=== PATIENT | male | born 1970 | race Caucasian/White ===

== ENCOUNTER 2024-09-08 09:25 | Inpatient (IN) | payer MEDICAID ==
[~2024-09-08] VITALS: Ht 172.7 cm; Wt 65.3 kg
--- NOTE | 2024-09-08 10:44 | ED.PDOC ---
History of Present Illness HPI Comments 54-year-old male came to the ER stating that he has a right hand swelling which started four days ago increasing in size. And swelling started after he had an object fall on his right hand. He denies use of drugs. He denies use of any medication. No fever on arrival. Vitals stable. Chief Complaint: Upper Extremity Time Seen by MD: 09:38 Primary Care Provider: none Reviewed Notes: Nurses Notes, Medications, Allergies Allergies: Coded Allergies: NO KNOWN ALLERGIES (Unverified , 09/08/24) Information Source: Patient Mode of Arrival: Ambulatory Severity: Moderate Timing: Days Duration: Since onset Past Medical History PAST MEDICAL HISTORY: Denies Surgical History: Denies all surgeries Social History Smoker: Non-Smoker Alcohol: Denies ETOH Use Drugs: Denies Drug Use Constitutional: denies: chills, diaphoresis, fatigue, fever, malaise, sweats, weakness, others EENTM: denies: blurred vision, double vision, ear bleeding, ear discharge, ear drainage, ear pain, ear ringing, eye pain, eye redness, hearing loss, mouth pain, mouth swelling, nasal discharge, nose bleeding, nose congestion, nose pain, photophobia, tearing, throat pain, throat swelling, voice changes, others Respiratory: denies: cough, hemoptysis, orthopnea, SOB at rest, shortness of breath, SOB with excertion, stridor, wheezing, others Cardiovascular: denies: chest pain, dizzy spells, diaphoresis, Dyspnea on exertion, edema, irregular heart beat, left arm pain, lightheadedness, palpitations, PND, syncope, others Gastrointestinal: denies: abdomen distended, abdominal pain, blood streaked bowels, constipated, diarrhea, dysphagia, difficulty swallowing, hematemesis, melena, nausea, poor appetite, poor fluid intake, rectal bleeding, rectal pain, vomiting, others Genitourinary: denies: burning, dysuria, flank pain, frequency, hematuria, incontinence, penile discharge, penile sore, pain, testicle pain, testicle swelling, urgency, others Neurological: denies: dizziness, fainting, headache, left sided numbness, left sided weakness, numbness, paresthesia, pre-existing deficit, right sided numbness, right sided weakness, seizure, speech problems, tingling, tremors, weakness, others Musculoskeletal: reports: joint swelling (Right hand); denies: back pain, gout, joint pain, muscle pain, muscle stiffness, neck pain, others Integumetry: denies: bruises, change in color, change in hair/nails, dryness, laceration, lesions, lumps, rash, wounds, others Allergic/Immunocompromised: denies: Difficulty Healing, Frequent Infections, Hives, Itching, others Hematologic/Lymphatic: denies: anemia, blood clots, easy bleeding, easy bruising, swollen glands, others Endocrine: denies: excessive hunger, excessive sweating, excessive thirst, excessive urination, flushing, intolerance to cold, intolerance to heat, unexplained weight gain, unexplained weight loss, others Psychiatric: denies: anxiety, bipolar disorder, depression, hopeless, panic disorder, schizophrenia, sleepless, suicidal, others Physical Exam General Appearance: Moderate Distress HEENT: Normal ENT Inspection, Pharynx Normal, TMs Normal Neck: Full Range of Motion, Non-Tender, Normal, Normal Inspection Respiratory: Chest Non-Tender, Lungs Clear, No Accessory Muscle Use, No Respiratory Distress, Normal Breath Sounds Cardiovascular: No Edema, No JVD, No Murmur, No Gallop, Normal Peripheral Pulses, Regular Rate/Rhythm Breast Exam: Deferred Gastrointestinal: No Organomegaly, Non Tender, No Pulsatile Mass, Normal Bowel Sounds, Soft Genitalia: Deferred Pelvic: Deferred Rectal: Deferred Extremities: Swelling (Right hand) Musculoskeletal : Apperance: Normal Neurologic: Alert, straightening press operator II-XII nml as Tested, No Motor Deficits, Normal Affect, Normal Mood, No Sensory Deficits Cerebellar Function: Normal Reflexes: Normal Skin: Dry, Normal Color, Warm Peripheral Pulses: 3+ Radial (R), 3+ Radial (L) Lymphatic: No Adenopathy Was a procedure done? Was a procedure done?: No Differential Dx Considerations may include: Cellulitis Electrolyte imbalance X-Ray, Labs, Meds, VS Vital Signs Date Time Temp Pulse Resp B/P (MAP) Pulse Ox O2 Delivery O2 Flow Rate FiO2 09/08/24 09:33 98.7 95 17 109/79 (89) 99 98.7 Patient alert. Complaining of right hand swelling. On examination he does have pulses but infected right hand. Vitals stable. Answering all questions. Establish intravenous access. Was given fluids. Was given Rocephin. Was given clindamycin. Reviewed his history. Denies use of drugs. Explained to the patient. Continue cardiac monitoring. Time of 1ST Reevaluation: 10:42 Reevaluation 1ST: Unchanged Patient Education/Counseling: Diagnosis, Treatment, Prognosis Family Education/Counseling: No Family Present Departure 1 Departure Time of Disposition: 10:43 Impression: Primary Impression: Cellulitis Qualified Codes: L03.113 - Cellulitis of right upper limb Disposition: ADMITTED INPATIENT Admit to: Med Surg Condition: Guarded Critical Care Note Critical Care Time?: No Stability Stability form required: No Heart Score Heart Score: Heart Score Response (Comments) Value History N/A 0 EKG N/A 0 Age N/A 0 Risk Factors N/A 0 Troponin N/A 0 Total 0 YUNIER URIARTE MD Sep 08, 2024 10:44
--- NOTE | 2024-09-08 11:27 | DVH ---
CLINICAL INDICATION: trauma TECHNIQUE: 3 radiographic views of the right hand were obtained. Comparison: None FINDINGS/IMPRESSION: There is no evidence of acute fracture or dislocation. The visualized joint space is well maintained. The alignment is anatomical. There is no radiopaque foreign body.
[2024-09-08 11:42] VITALS: PULSE 106; RESP 16; O2SAT 98
[2024-09-08] MEDS: SODIUM CHLORIDE 0.9% 1,000 ML IV ONE ×2 (11:45→14:09)
[2024-09-08] MEDS: ONDANSETRON HCL 4 MG/2 ML VIAL IV ONE (11:49)
[2024-09-08] MEDS: MORPHINE SULFATE 4 MG/ML SYR/VIAL IV ONE (11:49)
[2024-09-08] MEDS: cefTRIAXone 1GM/50ML D5W 50 ML IV ONE (11:49)
[2024-09-08 12:21] LABS: Basophils # (auto) 0.1 10 ^3/uL (0-0.2); Basophils % (auto) 0.3 % (0.0-2.0); Eosinophils # (auto) 0 10 ^3/uL (0-0.8); Hematocrit 45.3 % (41.0-53.0); Hemoglobin 15.1 g/dL (13.5-17.5); Lymphocytes # (auto) 1.5 10 ^3/uL (0.4-5.4); Lymphocytes % (auto) 7.4 % (10.0-50.0); Mean Corpuscular Hemoglobin 30.2 pg (28.0-32.0); Mean Corpuscular Hgb Conc. 33.3 g/dL (32.0-36.0); Mean Corpuscular Volume 90.7 fL (80.0-100.0); Monocytes # (auto) 1.5 10 ^3/uL (0-1.3); Monocytes % (auto) 7.6 % (0.0-12.0); Neutrophils # (auto) 16.7 10 ^3/uL (1.6-8.6); Neutrophils % (auto) 84.7 % (37.0-80.0); Platelet Count (auto) 314 10^3/uL (140-450); Red Blood Cells 4.99 10^6/uL (4.5-5.90); Red Cell Distribution Width 13.2 % (11.8-14.3); White Blood Cell 19.7 10^3/uL (4.4-10.8)
[2024-09-08 12:28] LABS: Chloride 99 mmol/L (98-107); Potassium 3.8 mmol/L (3.5-5.1)
[2024-09-08 12:29] LABS: Anion Gap 11 (5-15); Calcium 9.7 mg/dL (8.7-10.4); Carbon Dioxide 25 mmol/L (20-31)
[2024-09-08 12:34] LABS: Blood Urea Nitrogen 12 mg/dL (9-23)
[2024-09-08 12:35] LABS: Glucose 111 mg/dL (74-106); Sodium 135 mmol/L (136-145)
[2024-09-08] MEDS: CLINDAMYCIN 600MG IV 50 ML IV ONE (12:40)
[2024-09-08] MEDS ORDERED: DOCUSATE SOD 100 MG CAP PO PRN (13:45)
[2024-09-08] MEDS ORDERED: ONDANSETRON HCL 4 MG/2 ML VIAL IV PRN (13:45)
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
[2024-09-08] MEDS: CLINDAMYCIN 600MG IV 50 ML IV SCH (14:00)
[2024-09-08 16:47] VITALS: BP 135/87; PULSE 87; RESP 20; TEMP 99.1; O2SAT 99
[2024-09-08] MEDS: HYDROcodone-ACET 5/325MG TAB PO PRN (17:11)
[2024-09-09 07:28] LABS: Basophils # (auto) 0 10 ^3/uL (0-0.2); Basophils % (auto) 0.2 % (0.0-2.0); Eosinophils # (auto) 0.1 10 ^3/uL (0-0.8); Eosinophils % (auto) 0.6 % (0.0-7.0); Hematocrit 41.7 % (41.0-53.0); Hemoglobin 14.3 g/dL (13.5-17.5); Lymphocytes # (auto) 1.6 10 ^3/uL (0.4-5.4); Lymphocytes % (auto) 9.7 % (10.0-50.0); Mean Corpuscular Hemoglobin 30.6 pg (28.0-32.0); Mean Corpuscular Hgb Conc. 34.4 g/dL (32.0-36.0); Mean Corpuscular Volume 88.8 fL (80.0-100.0); Monocytes % (auto) 6.2 % (0.0-12.0); Neutrophils # (auto) 13.4 10 ^3/uL (1.6-8.6); Neutrophils % (auto) 83.3 % (37.0-80.0); Nucleated Red Blood Cells % 0.1 %; Platelet Count (auto) 289 10^3/uL (140-450); Red Blood Cells 4.69 10^6/uL (4.5-5.90); Red Cell Distribution Width 13.2 % (11.8-14.3); White Blood Cell 16.1 10^3/uL (4.4-10.8)
[2024-09-09 08:02] LABS: Anion Gap 9 (5-15); Carbon Dioxide 25 mmol/L (20-31); Chloride 98 mmol/L (98-107); Potassium 4.2 mmol/L (3.5-5.1); Sodium 132 mmol/L (136-145)
[2024-09-09 08:03] LABS: Alanine Aminotransferase 61 U/L (7-40); Albumin 4.2 g/dL (3.2-4.8); Alkaline Phosphatase 163 U/L (46-116); Aspartate Aminotransferase 53 U/L (13-40); Bilirubin, Total 1.1 mg/dL (0.2-1.0); Calcium 9.4 mg/dL (8.7-10.4); Glucose 95 mg/dL (74-106); Total Protein 6.7 g/dL (5.7-8.2)
[2024-09-09 08:49] LABS: BUN/Creatinine Ratio 23.7 (10.0-20.0); Blood Urea Nitrogen 14 mg/dL (9-23)
[2024-09-09 09:00] VITALS: BP 168/55; PULSE 77; RESP 16; TEMP 98.2; O2SAT 97
[2024-09-09] MEDS: cefTRIAXone 1GM/50ML D5W 50 ML IV SCH (09:26)
[2024-09-09 13:00] VITALS: BP 104/61; PULSE 83; RESP 14; TEMP 98.5; O2SAT 92
--- NOTE | 2024-09-09 16:25 | DVHPN2 ---
Subjective Patient continues to report having right hand pain with throbbing Reviewed: Care Plan, H&P, Labs, Medications Changes from previous H/P or p: No Changes General: Per HPI Eyes: No Pain, No Vision change, No Conjunctivae inflammation, No Eyelid inflammation, No Other, No Redness ENT: No Ear pain, No Ear discharge, No Nose pain, No Nose discharge, No Nose congestion, No Mouth pain, No Mouth swelling, No Throat pain, No Throat swelling, No Other Cardiovascular: No Chest Pain, No Palpitations, No Orthopnea, No Paroxysmal Noc. Dyspnea, No Edema, No Lt Headedness, No Other Respiratory: No Cough, No Dry, No Shortness of breath, No SOB with excertion, No Wheezing, No Hemoptysis, No Pleuritic Pain, No Sputum, No Other Gastrointestinal: No Nausea, No Vomiting, No Abdominal Pain, No Diarrhea, No Constipation, No Melena, No Hematochezia, No Other Genitourinary: No Dysuria, No Frequency, No Incontinence, No Hematuria, No Retention, No Other Musculoskeletal: No other, No neck pain, No shoulder pain, No arm pain, No back pain; hand pain (right hand swelling, redness, and pain); No leg pain, No foot pain Skin: No Rash, No Lesions, No Jaundice, No Bruising, No Other Objective Vitals Vital Signs Date Time Temp Pulse Resp B/P (MAP) Pulse Ox O2 Delivery O2 Flow Rate FiO2 09/09/24 13:00 98.5 83 14 104/61 (75) 92 98.5 09/09/24 08:00 Room Air* 0 21 Intake/Output Intake and Output 09/09/24 07:00 Intake Total 250 ml Balance 250 ml Intake IV Total 250 ml General Appearance: Alert, Oriented X3, Cooperative, mild distress HEENT: Atraumatic, PERRLA Lungs: Clear to auscultation, Normal air movement Cardiovascular: Normal S1, Normal S2 Abdomen: Normal bowel sounds, Soft, No tenderness, No hepatospenomegaly Genitourinary: No Apparent Abnormalities Extremities: Normal pulses, Other (Right hand swelling) Neuro: Normal gait, Normal speech Psych/Mental Status: Mental status NL, Mood NL Medications Current Medications Medications Dose Ordered Sig/Raul Route Start Time Stop Time Status Last Admin Dose Admin Acetaminophen/ Hydrocodone Bitart 1 tab Q4HP PRN PO 09/08/24 13:45 09/09/24 02:42 1 TAB Ondansetron HCl 4 mg Q4HP PRN IV 09/08/24 13:45 Docusate Sodium 100 mg BIDPRN PRN PO 09/08/24 13:45 Acetaminophen 650 mg Q6HP PRN PO 09/08/24 13:45 Clindamycin Phosphate 50 ml @ 50 mls/hr Q8HR IV 09/08/24 14:00 09/09/24 15:19 50 MLS/HR Ceftriaxone Sodium 50 ml @ 100 mls/hr DAILY@09 IV 09/09/24 09:00 09/09/24 09:26 100 MLS/HR Laboratory Results Laboratory Tests 09/09/24 06:45 Chemistry Test 09/09/24 06:45 Albumin 4.2 g/dL (3.2-4.8) Calcium Level 9.4 mg/dL (8.7-10.4) Total Protein 6.7 g/dL (5.7-8.2) LFT Test 09/09/24 06:45 Alanine Aminotransferase (ALT) 61 U/L (7-40) H Alkaline Phosphatase 163 U/L (46-116) H Aspartate Amino Transferase (AST) 53 U/L (13-40) H Total Bilirubin 1.1 mg/dL (0.2-1.0) H Microbiology Microbiology Date/Time Source Procedure Growth Status 09/08/24 14:05 Blood Blood Culture - Preliminary NO GROWTH AFTER 24 HOURS OF INCUBATION. Resulted Labs and/or images reviewed: Labs reviewed by me, Image(s) reviewed by me Assessment/Plan Assessment/Plan Impression: -sepsis -right hand cellulitis Plan: -continue antibiotic therapy with Rocephin and clindamycin -add Florastor -blood and wound cultures -pain management -repeat labs in a.m. Total time spent with patient discussing and formulating plan of care: 35 minutes. This medical document was created using an electronic medical record system with [employer] dictation system. Although this document has been carefully reviewed, there may still be some phonetic and typographical errors. These areas are purely typographical due to imperfections of the software programs, and do not reflect any compromise in the patient's medical care. Plan discussed with: Patient, Other (RN) My Orders Orders - EVONNE VARGAS [employer]ISOR OPERATOR Procedure Category Date Status Time Cleanse Wound With ILEANA 09/09/24 In Process Wound Clean 10:47 * Dietary Consult CONS 09/09/24 Transmitted 11:24 Florastor (S. PHA 09/10/24 Verified Boulardii) (Florastor) 10:00 Basic Metabolic Panel LAB 09/10/24 Verified 04:00 Complete Blood Count LAB 09/10/24 Verified 04:00 Date of Service: Sep 09, 2024 Billing Provider: EVONNE VARGAS NP Common Visit Codes: [id number] INP/OBS CARE(HIGH) EVONNE VARGAS NP Sep 09, 2024 16:25
[2024-09-09 17:00] VITALS: BP 112/70; PULSE 70; RESP 18; TEMP 98.2; O2SAT 97
[2024-09-09 21:00] VITALS: BP 115/58; PULSE 84; RESP 19; TEMP 98.8; O2SAT 97
[2024-09-09] MEDS: ACETAMINOPHEN 325 MG TAB PO PRN (23:14)
[2024-09-10 05:00] VITALS: BP 97/58; PULSE 57; RESP 20; TEMP 98.1; O2SAT 98
[2024-09-10 06:30] LABS: Chloride 102 mmol/L (98-107); Potassium 3.6 mmol/L (3.5-5.1); Sodium 136 mmol/L (136-145)
[2024-09-10 06:31] LABS: Anion Gap 6 (5-15); Basophils # (auto) 0 10 ^3/uL (0-0.2); Basophils % (auto) 0.4 % (0.0-2.0); Calcium 9.2 mg/dL (8.7-10.4); Carbon Dioxide 28 mmol/L (20-31); Eosinophils # (auto) 0.2 10 ^3/uL (0-0.8); Eosinophils % (auto) 1.4 % (0.0-7.0); Hematocrit 40.5 % (41.0-53.0); Lymphocytes # (auto) 1.6 10 ^3/uL (0.4-5.4); Mean Corpuscular Hemoglobin 30.6 pg (28.0-32.0); Mean Corpuscular Hgb Conc. 34.7 g/dL (32.0-36.0); Mean Corpuscular Volume 88.4 fL (80.0-100.0); Monocytes # (auto) 0.8 10 ^3/uL (0-1.3); Neutrophils # (auto) 9.5 10 ^3/uL (1.6-8.6); Neutrophils % (auto) 78.2 % (37.0-80.0); Platelet Count (auto) 311 10^3/uL (140-450); Red Blood Cells 4.58 10^6/uL (4.5-5.90); Red Cell Distribution Width 13.2 % (11.8-14.3); White Blood Cell 12.1 10^3/uL (4.4-10.8)
[2024-09-10 06:36] LABS: BUN/Creatinine Ratio 21.2 (10.0-20.0); Blood Urea Nitrogen 11 mg/dL (9-23); Glucose 99 mg/dL (74-106)
[2024-09-10 08:00] VITALS: PULSE 75; RESP 16; O2SAT 100
[2024-09-10] MEDS: FLORASTOR (S. BOULARDII) 250 MG CAP PO SCH (08:50)
[2024-09-10 09:00] VITALS: BP 102/56; PULSE 75; RESP 16; TEMP 97.7; O2SAT 100
--- NOTE | 2024-09-10 10:56 | DVHPN2 ---
Subjective Patient reports improvement with right hand Reviewed: Care Plan, H&P, Labs, Medications Changes from previous H/P or p: No Changes General: Per HPI Eyes: No Pain, No Vision change, No Conjunctivae inflammation, No Eyelid inflammation, No Other, No Redness ENT: No Ear pain, No Ear discharge, No Nose pain, No Nose discharge, No Nose congestion, No Mouth pain, No Mouth swelling, No Throat pain, No Throat swelling, No Other Cardiovascular: No Chest Pain, No Palpitations, No Orthopnea, No Paroxysmal Noc. Dyspnea, No Edema, No Lt Headedness, No Other Respiratory: No Cough, No Dry, No Shortness of breath, No SOB with excertion, No Wheezing, No Hemoptysis, No Pleuritic Pain, No Sputum, No Other Gastrointestinal: No Nausea, No Vomiting, No Abdominal Pain, No Diarrhea, No Constipation, No Melena, No Hematochezia, No Other Genitourinary: No Dysuria, No Frequency, No Incontinence, No Hematuria, No Retention, No Other Musculoskeletal: No other, No neck pain, No shoulder pain, No arm pain, No back pain; hand pain (right hand swelling, redness, and pain); No leg pain, No foot pain Skin: No Rash, No Lesions, No Jaundice, No Bruising, No Other Objective Vitals Vital Signs Date Time Temp Pulse Resp B/P (MAP) Pulse Ox O2 Delivery O2 Flow Rate FiO2 09/10/24 09:00 97.7 75 16 102/56 (71) 100 97.7 09/10/24 08:00 Room Air* 0 21 Intake/Output Intake and Output 09/10/24 07:00 Intake Total 708 ml Output Total 900 ml Balance -192 ml Intake Oral 558 ml IV Total 150 ml Output Urine Total 900 ml General Appearance: Alert, Oriented X3, Cooperative, mild distress HEENT: Atraumatic, PERRLA Lungs: Clear to auscultation, Normal air movement Cardiovascular: Normal S1, Normal S2 Abdomen: Normal bowel sounds, Soft, No tenderness, No hepatospenomegaly Genitourinary: No Apparent Abnormalities Extremities: Normal pulses, Other (Right hand swelling) Neuro: Normal gait, Normal speech Skin: Dry, Intact Psych/Mental Status: Mental status NL, Mood NL Medications Current Medications Medications Dose Ordered Sig/Raul Route Start Time Stop Time Status Last Admin Dose Admin Acetaminophen/ Hydrocodone Bitart 1 tab Q4HP PRN PO 09/08/24 13:45 09/09/24 02:42 1 TAB Ondansetron HCl 4 mg Q4HP PRN IV 09/08/24 13:45 Docusate Sodium 100 mg BIDPRN PRN PO 09/08/24 13:45 Acetaminophen 650 mg Q6HP PRN PO 09/08/24 13:45 09/09/24 23:14 650 MG Clindamycin Phosphate 50 ml @ 50 mls/hr Q8HR IV 09/08/24 14:00 09/10/24 05:35 50 MLS/HR Ceftriaxone Sodium 50 ml @ 100 mls/hr DAILY@09 IV 09/09/24 09:00 09/10/24 08:49 100 MLS/HR Saccharomyces Boulardii 250 mg DAILY PO 09/10/24 10:00 09/10/24 08:50 250 MG Laboratory Results Laboratory Tests 09/10/24 05:52 Chemistry Test 09/10/24 05:52 Calcium Level 9.2 mg/dL (8.7-10.4) Microbiology Microbiology Date/Time Source Procedure Growth Status 09/08/24 14:05 Blood Blood Culture - Preliminary NO GROWTH AFTER 24 HOURS OF INCUBATION. Resulted Labs and/or images reviewed: Labs reviewed by me, Image(s) reviewed by me Assessment/Plan Assessment/Plan Impression: -sepsis -right hand cellulitis Plan: Events: No events overnight right hand swelling has improved dramatically. Continues to have some drainage noted on wound. White blood cell count also improving -continue antibiotic therapy with Rocephin and clindamycin , continue Florastor -blood and wound cultures : Pending -pain management -repeat labs in a.m. Total time spent with patient discussing and formulating plan of care: 35 minutes. This medical document was created using an electronic medical record system with [employer] dictation system. Although this document has been carefully reviewed, there may still be some phonetic and typographical errors. These areas are purely typographical due to imperfections of the software programs, and do not reflect any compromise in the patient's medical care. Plan discussed with: Patient, Other (RN) My Orders Orders - EVONNE VARGAS NP Procedure Category Date Status Time Cleanse Wound With ILEANA 09/09/24 In Process Wound Clean 10:47 * Dietary Consult CONS 09/09/24 Transmitted 11:24 Florastor (S. PHA 09/10/24 In Process Boulardii) (Florastor) 10:00 Basic Metabolic Panel LAB 09/11/24 Verified 04:00 Complete Blood Count LAB 09/11/24 Verified 04:00 Date of Service: Sep 10, 2024 Billing Provider: EVONNE VARGAS NP Common Visit Codes: [id number] INP/OBS CARE(MOD) EVONNE VARGAS NP Sep 10, 2024 10:56
[2024-09-10 13:00] VITALS: BP 115/65; PULSE 66; RESP 20; TEMP 97.7; O2SAT 93
[2024-09-10 17:00] VITALS: BP 111/69; PULSE 62; RESP 18; TEMP 98.1; O2SAT 93
[2024-09-10 21:00] VITALS: BP 100/51; PULSE 86; RESP 18; TEMP 98.5; O2SAT 96
[2024-09-11] VITALS (8 sets, daily range): BP systolic 91–140; BP diastolic 47–69; PULSE 65–83; RESP 16–20; TEMP 97.5–98.4; O2SAT 92–100
[2024-09-11 06:35] LABS: Basophils # (auto) 0.1 10 ^3/uL (0-0.2); Basophils % (auto) 0.5 % (0.0-2.0); Eosinophils # (auto) 0.2 10 ^3/uL (0-0.8); Eosinophils % (auto) 1.5 % (0.0-7.0); Hematocrit 39.1 % (41.0-53.0); Hemoglobin 13.6 g/dL (13.5-17.5); Lymphocytes % (auto) 19.1 % (10.0-50.0); Mean Corpuscular Hemoglobin 30.6 pg (28.0-32.0); Mean Corpuscular Hgb Conc. 34.7 g/dL (32.0-36.0); Mean Corpuscular Volume 88.3 fL (80.0-100.0); Monocytes # (auto) 0.9 10 ^3/uL (0-1.3); Monocytes % (auto) 8.2 % (0.0-12.0); Neutrophils # (auto) 7.4 10 ^3/uL (1.6-8.6); Neutrophils % (auto) 70.7 % (37.0-80.0); Nucleated Red Blood Cells % 0.1 %; Platelet Count (auto) 333 10^3/uL (140-450); Red Blood Cells 4.43 10^6/uL (4.5-5.90); Red Cell Distribution Width 13.1 % (11.8-14.3); White Blood Cell 10.5 10^3/uL (4.4-10.8)
[2024-09-11 06:39] LABS: Anion Gap 10 (5-15); Carbon Dioxide 27 mmol/L (20-31); Chloride 100 mmol/L (98-107); Sodium 137 mmol/L (136-145)
[2024-09-11 06:41] LABS: Calcium 8.8 mg/dL (8.7-10.4)
[2024-09-11 06:46] LABS: BUN/Creatinine Ratio 27.3 (10.0-20.0); Blood Urea Nitrogen 15 mg/dL (9-23)
[2024-09-11 06:47] LABS: Glucose 134 mg/dL (74-106)
--- NOTE | 2024-09-11 10:59 | DVHPN2 ---
Subjective The patient is seen and examined at bedside. No complaint today. Reviewed: Care Plan, H&P, Labs, Medications Changes from previous H/P or p: No Changes General: Per HPI Eyes: No Pain, No Vision change, No Conjunctivae inflammation, No Eyelid inflammation, No Other, No Redness ENT: No Ear pain, No Ear discharge, No Nose pain, No Nose discharge, No Nose congestion, No Mouth pain, No Mouth swelling, No Throat pain, No Throat swelling, No Other Cardiovascular: No Chest Pain, No Palpitations, No Orthopnea, No Paroxysmal Noc. Dyspnea, No Edema, No Lt Headedness, No Other Respiratory: No Cough, No Dry, No Shortness of breath, No SOB with excertion, No Wheezing, No Hemoptysis, No Pleuritic Pain, No Sputum, No Other Gastrointestinal: No Nausea, No Vomiting, No Abdominal Pain, No Diarrhea, No Constipation, No Melena, No Hematochezia, No Other Genitourinary: No Dysuria, No Frequency, No Incontinence, No Hematuria, No Retention, No Other Musculoskeletal: No other, No neck pain, No shoulder pain, No arm pain, No back pain; hand pain (right hand swelling, redness, and pain); No leg pain, No foot pain Skin: No Rash, No Lesions, No Jaundice, No Bruising, No Other Objective Vitals Vital Signs Date Time Temp Pulse Resp B/P (MAP) Pulse Ox O2 Delivery O2 Flow Rate FiO2 09/11/24 07:39 98.4 68 20 91/47 (62) 92 98.4 09/10/24 20:00 Room Air* 0 21 Intake/Output Intake and Output 09/11/24 06:59 Intake Total 1710 ml Output Total 800 ml Balance 910 ml Intake Oral 1510 ml IV Total 200 ml Output Urine Total 800 ml General Appearance: Alert, Oriented X3, Cooperative, mild distress HEENT: Atraumatic, PERRLA Lungs: Clear to auscultation, Normal air movement Cardiovascular: Normal S1, Normal S2 Abdomen: Normal bowel sounds, Soft, No tenderness, No hepatospenomegaly Genitourinary: No Apparent Abnormalities Extremities: Normal pulses, Other (Right hand swelling) Neuro: Normal gait, Normal speech Skin: Dry, Intact Psych/Mental Status: Mental status NL, Mood NL Medications Current Medications Medications Dose Ordered Sig/Raul Route Start Time Stop Time Status Last Admin Dose Admin Acetaminophen/ Hydrocodone Bitart 1 tab Q4HP PRN PO 09/08/24 13:45 09/09/24 02:42 1 TAB Ondansetron HCl 4 mg Q4HP PRN IV 09/08/24 13:45 Docusate Sodium 100 mg BIDPRN PRN PO 09/08/24 13:45 Acetaminophen 650 mg Q6HP PRN PO 09/08/24 13:45 09/09/24 23:14 650 MG Clindamycin Phosphate 50 ml @ 50 mls/hr Q8HR IV 09/08/24 14:00 09/11/24 05:43 50 MLS/HR Ceftriaxone Sodium 50 ml @ 100 mls/hr DAILY@09 IV 09/09/24 09:00 09/10/24 08:49 100 MLS/HR Saccharomyces Boulardii 250 mg DAILY PO 09/10/24 10:00 09/10/24 08:50 250 MG Laboratory Results Laboratory Tests 09/11/24 05:34 Chemistry Test 09/11/24 05:34 Calcium Level 8.8 mg/dL (8.7-10.4) Microbiology Microbiology Date/Time Source Procedure Growth Status 09/09/24 11:00 Hand Gram Stain - Final Resulted 09/09/24 11:00 Wound Culture - Preliminary Streptococcus Group A Resulted 09/08/24 14:05 Blood Blood Culture - Preliminary NO GROWTH AFTER 48 HOURS OF INCUBATION. Resulted Labs and/or images reviewed: Labs reviewed by me Assessment/Plan Assessment/Plan -sepsis -right hand cellulitis Plan: Continuing current management. Continuing with IV antibiotic Rocephin and clindamycin Continuing florastor We will follow up with blood culture and wound culture Continuing pain medication This medical document was created using an electronic medical record system with [employer] direct computerized dictation system. Although this document has been carefully reviewed, there may still be some phonetic and typographical errors. These areas are purely typographical due to imperfections of the software programs, and do not reflect any compromise in the patient's medical care. Plan discussed with: Patient Date of Service: Sep 11, 2024 Billing Provider: JEAN-CLAUDE ORNELAS MD Common Visit Codes: [id number] INP/OBS CARE(HIGH) JEAN-CLAUDE ORNELAS MD Sep 11, 2024 10:59
[2024-09-12] VITALS (8 sets, daily range): BP systolic 90–127; BP diastolic 52–69; PULSE 60–74; RESP 16–19; TEMP 97.1–98.3; O2SAT 90–100
--- NOTE | 2024-09-12 22:56 | DVHPN2 ---
Subjective The patient is seen and examined at bedside. Still have pain on his fingers. Reviewed: Care Plan, H&P, Labs, Medications Changes from previous H/P or p: No Changes General: Per HPI Eyes: No Pain, No Vision change, No Conjunctivae inflammation, No Eyelid inflammation, No Other, No Redness ENT: No Ear pain, No Ear discharge, No Nose pain, No Nose discharge, No Nose congestion, No Mouth pain, No Mouth swelling, No Throat pain, No Throat swelling, No Other Cardiovascular: No Chest Pain, No Palpitations, No Orthopnea, No Paroxysmal Noc. Dyspnea, No Edema, No Lt Headedness, No Other Respiratory: No Cough, No Dry, No Shortness of breath, No SOB with excertion, No Wheezing, No Hemoptysis, No Pleuritic Pain, No Sputum, No Other Gastrointestinal: No Nausea, No Vomiting, No Abdominal Pain, No Diarrhea, No Constipation, No Melena, No Hematochezia, No Other Genitourinary: No Dysuria, No Frequency, No Incontinence, No Hematuria, No Retention, No Other Musculoskeletal: No other, No neck pain, No shoulder pain, No arm pain, No back pain; hand pain (right hand swelling, redness, and pain); No leg pain, No foot pain Skin: No Rash, No Lesions, No Jaundice, No Bruising, No Other Objective Vitals Vital Signs Date Time Temp Pulse Resp B/P (MAP) Pulse Ox O2 Delivery O2 Flow Rate FiO2 09/12/24 21:00 98.2 64 17 117/69 (85) 94 98.2 09/12/24 20:00 Room Air* 0 21 Intake/Output Intake and Output 09/12/24 07:00 Intake Total 1150 ml Output Total 800 ml Balance 350 ml Intake Oral 1100 ml IV Total 50 ml Output Urine Total 800 ml General Appearance: Alert, Oriented X3, Cooperative, mild distress HEENT: Atraumatic, PERRLA Lungs: Clear to auscultation, Normal air movement Cardiovascular: Normal S1, Normal S2 Abdomen: Normal bowel sounds, Soft, No tenderness, No hepatospenomegaly Genitourinary: No Apparent Abnormalities Extremities: Normal pulses, Other (Right hand swelling) Neuro: Normal gait, Normal speech Skin: Dry, Intact Psych/Mental Status: Mental status NL, Mood NL Medications Current Medications Medications Dose Ordered Sig/Raul Route Start Time Stop Time Status Last Admin Dose Admin Acetaminophen/ Hydrocodone Bitart 1 tab Q4HP PRN PO 09/08/24 13:45 09/11/24 14:29 1 TAB Ondansetron HCl 4 mg Q4HP PRN IV 09/08/24 13:45 Docusate Sodium 100 mg BIDPRN PRN PO 09/08/24 13:45 Acetaminophen 650 mg Q6HP PRN PO 09/08/24 13:45 09/09/24 23:14 650 MG Clindamycin Phosphate 50 ml @ 50 mls/hr Q8HR IV 09/08/24 14:00 09/12/24 21:16 50 MLS/HR Ceftriaxone Sodium 50 ml @ 100 mls/hr DAILY@09 IV 09/09/24 09:00 09/12/24 09:39 100 MLS/HR Saccharomyces Boulardii 250 mg DAILY PO 09/10/24 10:00 09/12/24 09:39 250 MG Laboratory Results Laboratory Tests 09/11/24 05:34 Microbiology Microbiology Date/Time Source Procedure Growth Status 09/09/24 11:00 Hand Gram Stain - Final Complete 09/09/24 11:00 Wound Culture - Final Klebsiella oxytoca Streptococcus Group A Complete 09/08/24 14:05 Blood Blood Culture - Preliminary NO GROWTH AFTER 72 HOURS OF INCUBATION. Resulted Labs and/or images reviewed: Labs reviewed by me Assessment/Plan Assessment/Plan -sepsis -right hand cellulitis with wound culture show: Klebsiela Oxytoca and Strep Group A Plan: Continuing current management. Continuing with IV antibiotic Rocephin and clindamycin Continuing florastor Continue wound care. We will follow up with blood culture Continuing pain medication This medical document was created using an electronic medical record system with [employer] direct computerized dictation system. Although this document has been carefully reviewed, there may still be some phonetic and typographical errors. These areas are purely typographical due to imperfections of the software programs, and do not reflect any compromise in the patient's medical care. Plan discussed with: Patient Date of Service: Sep 12, 2024 Billing Provider: JEAN-CLAUDE ORNELAS MD Common Visit Codes: [id number] INP/OBS CARE(HIGH) JEAN-CLAUDE ORNELAS MD Sep 12, 2024 22:56
[2024-09-13] VITALS (7 sets, daily range): BP systolic 97–128; BP diastolic 54–85; PULSE 66–81; RESP 17–20; TEMP 97.4–98.1; O2SAT 97–98
--- NOTE | 2024-09-13 13:04 | DVHPN2 ---
Subjective The patient is seen and examined at bedside. Still have pain on his fingers. Wound look better today. Reviewed: Care Plan, H&P, Labs, Medications Changes from previous H/P or p: No Changes General: Per HPI Eyes: No Pain, No Vision change, No Conjunctivae inflammation, No Eyelid inflammation, No Other, No Redness ENT: No Ear pain, No Ear discharge, No Nose pain, No Nose discharge, No Nose congestion, No Mouth pain, No Mouth swelling, No Throat pain, No Throat swelling, No Other Cardiovascular: No Chest Pain, No Palpitations, No Orthopnea, No Paroxysmal Noc. Dyspnea, No Edema, No Lt Headedness, No Other Respiratory: No Cough, No Dry, No Shortness of breath, No SOB with excertion, No Wheezing, No Hemoptysis, No Pleuritic Pain, No Sputum, No Other Gastrointestinal: No Nausea, No Vomiting, No Abdominal Pain, No Diarrhea, No Constipation, No Melena, No Hematochezia, No Other Genitourinary: No Dysuria, No Frequency, No Incontinence, No Hematuria, No Retention, No Other Musculoskeletal: No other, No neck pain, No shoulder pain, No arm pain, No back pain; hand pain (right hand swelling, redness, and pain); No leg pain, No foot pain Skin: No Rash, No Lesions, No Jaundice, No Bruising, No Other Objective Vitals Vital Signs Date Time Temp Pulse Resp B/P (MAP) Pulse Ox O2 Delivery O2 Flow Rate FiO2 09/13/24 08:00 67 20 97 Room Air* 0 21 09/13/24 05:00 97.9 97/54 (68) 97.9 Intake/Output Intake and Output 09/13/24 07:00 Intake Total 900 ml Output Total 450 ml Balance 450 ml Intake Oral 800 ml IV Total 100 ml Output Urine Total 450 ml # Voids 2 # Bowel Movements 1 General Appearance: Alert, Oriented X3, Cooperative, mild distress HEENT: Atraumatic, PERRLA Lungs: Clear to auscultation, Normal air movement Cardiovascular: Normal S1, Normal S2 Abdomen: Normal bowel sounds, Soft, No tenderness, No hepatospenomegaly Genitourinary: No Apparent Abnormalities Extremities: Normal pulses, Other (Right hand swelling) Neuro: Normal gait, Normal speech Skin: Dry, Intact Psych/Mental Status: Mental status NL, Mood NL Medications Current Medications Medications Dose Ordered Sig/Raul Route Start Time Stop Time Status Last Admin Dose Admin Acetaminophen/ Hydrocodone Bitart 1 tab Q4HP PRN PO 09/08/24 13:45 09/11/24 14:29 1 TAB Ondansetron HCl 4 mg Q4HP PRN IV 09/08/24 13:45 Docusate Sodium 100 mg BIDPRN PRN PO 09/08/24 13:45 Acetaminophen 650 mg Q6HP PRN PO 09/08/24 13:45 09/09/24 23:14 650 MG Clindamycin Phosphate 50 ml @ 50 mls/hr Q8HR IV 09/08/24 14:00 09/13/24 05:33 50 MLS/HR Ceftriaxone Sodium 50 ml @ 100 mls/hr DAILY@09 IV 09/09/24 09:00 09/13/24 08:57 100 MLS/HR Saccharomyces Boulardii 250 mg DAILY PO 09/10/24 10:00 09/13/24 08:57 250 MG Laboratory Results Laboratory Tests 09/11/24 05:34 Microbiology Microbiology Date/Time Source Procedure Growth Status 09/09/24 11:00 Hand Gram Stain - Final Complete 09/09/24 11:00 Wound Culture - Final Klebsiella oxytoca Streptococcus Group A Complete 09/08/24 14:05 Blood Blood Culture - Preliminary NO GROWTH AFTER 72 HOURS OF INCUBATION. Resulted Labs and/or images reviewed: Labs reviewed by me Assessment/Plan Assessment/Plan -sepsis -right hand cellulitis with wound culture show: Klebsiela Oxytoca and Strep Group A Plan: Continuing current management. Continuing with IV antibiotic Rocephin and clindamycin Continuing florastor Continue wound care. We will follow up with blood culture Continuing pain medication This medical document was created using an electronic medical record system with [employer] direct computerized dictation system. Although this document has been carefully reviewed, there may still be some phonetic and typographical errors. These areas are purely typographical due to imperfections of the software programs, and do not reflect any compromise in the patient's medical care. Plan discussed with: Patient Date of Service: Sep 13, 2024 Billing Provider: JEAN-CLAUDE ORNELAS MD Common Visit Codes: [id number] INP/OBS CARE(HIGH) JEAN-CLAUDE ORNELAS MD Sep 13, 2024 13:04
[2024-09-14] VITALS (8 sets, daily range): BP systolic 108–126; BP diastolic 56–78; PULSE 60–83; RESP 16–20; TEMP 97.6–98; O2SAT 95–100
[2024-09-14 05:49] LABS: Basophils # (auto) 0.1 10 ^3/uL (0-0.2); Eosinophils # (auto) 0.2 10 ^3/uL (0-0.8); Eosinophils % (auto) 2.9 % (0.0-7.0); Hematocrit 40.1 % (41.0-53.0); Hemoglobin 13.5 g/dL (13.5-17.5); Lymphocytes # (auto) 1.8 10 ^3/uL (0.4-5.4); Lymphocytes % (auto) 25.1 % (10.0-50.0); Mean Corpuscular Hemoglobin 30.1 pg (28.0-32.0); Mean Corpuscular Hgb Conc. 33.7 g/dL (32.0-36.0); Mean Corpuscular Volume 89.5 fL (80.0-100.0); Monocytes # (auto) 0.6 10 ^3/uL (0-1.3); Monocytes % (auto) 8.5 % (0.0-12.0); Neutrophils # (auto) 4.3 10 ^3/uL (1.6-8.6); Neutrophils % (auto) 61.5 % (37.0-80.0); Nucleated Red Blood Cells % 0.3 %; Platelet Count (auto) 400 10^3/uL (140-450); Red Blood Cells 4.48 10^6/uL (4.5-5.90); Red Cell Distribution Width 13.3 % (11.8-14.3); White Blood Cell 7.1 10^3/uL (4.4-10.8)
[2024-09-14 06:05] LABS: Anion Gap 5 (5-15); Calcium 9.2 mg/dL (8.7-10.4); Carbon Dioxide 27 mmol/L (20-31); Chloride 106 mmol/L (98-107); Sodium 138 mmol/L (136-145)
[2024-09-14 06:11] LABS: BUN/Creatinine Ratio 27.6 (10.0-20.0); Blood Urea Nitrogen 16 mg/dL (9-23); Glucose 97 mg/dL (74-106)
--- NOTE | 2024-09-14 12:05 | DVHPN2 ---
Subjective The patient is seen and examined at bedside. Still have pain on his fingers. Wound look better today. The patient edema improved. Reviewed: Care Plan, H&P, Labs, Medications Changes from previous H/P or p: No Changes General: Per HPI Eyes: No Pain, No Vision change, No Conjunctivae inflammation, No Eyelid inflammation, No Other, No Redness ENT: No Ear pain, No Ear discharge, No Nose pain, No Nose discharge, No Nose congestion, No Mouth pain, No Mouth swelling, No Throat pain, No Throat swelling, No Other Cardiovascular: No Chest Pain, No Palpitations, No Orthopnea, No Paroxysmal Noc. Dyspnea, No Edema, No Lt Headedness, No Other Respiratory: No Cough, No Dry, No Shortness of breath, No SOB with excertion, No Wheezing, No Hemoptysis, No Pleuritic Pain, No Sputum, No Other Gastrointestinal: No Nausea, No Vomiting, No Abdominal Pain, No Diarrhea, No Constipation, No Melena, No Hematochezia, No Other Genitourinary: No Dysuria, No Frequency, No Incontinence, No Hematuria, No Retention, No Other Musculoskeletal: No other, No neck pain, No shoulder pain, No arm pain, No back pain; hand pain (right hand swelling, redness, and pain); No leg pain, No foot pain Skin: No Rash, No Lesions, No Jaundice, No Bruising, No Other Objective Vitals Vital Signs Date Time Temp Pulse Resp B/P (MAP) Pulse Ox O2 Delivery O2 Flow Rate FiO2 09/14/24 09:21 97.6 60 20 108/70 (83) 100 97.6 09/14/24 08:00 Room Air* 0 21 Intake/Output Intake and Output 09/14/24 07:00 Intake Total 1560 ml Output Total 200 ml Balance 1360 ml Intake Oral 1460 ml IV Total 100 ml Output Urine Total 200 ml # Voids 3 # Bowel Movements 1 General Appearance: Alert, Oriented X3, Cooperative, mild distress HEENT: Atraumatic, PERRLA Lungs: Clear to auscultation, Normal air movement Cardiovascular: Normal S1, Normal S2 Abdomen: Normal bowel sounds, Soft, No tenderness, No hepatospenomegaly Genitourinary: No Apparent Abnormalities Extremities: Normal pulses, Other (Right hand swelling) Neuro: Normal gait, Normal speech Skin: Dry, Intact Psych/Mental Status: Mental status NL, Mood NL Medications Current Medications Medications Dose Ordered Sig/Raul Route Start Time Stop Time Status Last Admin Dose Admin Acetaminophen/ Hydrocodone Bitart 1 tab Q4HP PRN PO 09/08/24 13:45 09/11/24 14:29 1 TAB Ondansetron HCl 4 mg Q4HP PRN IV 09/08/24 13:45 Docusate Sodium 100 mg BIDPRN PRN PO 09/08/24 13:45 Acetaminophen 650 mg Q6HP PRN PO 09/08/24 13:45 09/09/24 23:14 650 MG Clindamycin Phosphate 50 ml @ 50 mls/hr Q8HR IV 09/08/24 14:00 09/14/24 05:45 50 MLS/HR Ceftriaxone Sodium 50 ml @ 100 mls/hr DAILY@09 IV 09/09/24 09:00 09/14/24 10:07 100 MLS/HR Saccharomyces Boulardii 250 mg DAILY PO 09/10/24 10:00 09/14/24 10:07 250 MG Laboratory Results Laboratory Tests 09/14/24 05:35 Chemistry Test 09/14/24 05:35 Calcium Level 9.2 mg/dL (8.7-10.4) Microbiology Microbiology Date/Time Source Procedure Growth Status 09/09/24 11:00 Hand Gram Stain - Final Complete 09/09/24 11:00 Wound Culture - Final Klebsiella oxytoca Streptococcus Group A Complete 09/08/24 14:05 Blood Blood Culture - Final NO GROWTH AFTER 5 DAYS OF INCUBATION. Complete Labs and/or images reviewed: Labs reviewed by me Assessment/Plan Assessment/Plan -sepsis -right hand cellulitis with wound culture show: Klebsiela Oxytoca and Strep Group A Plan: Continuing current management. Continuing with IV antibiotic Rocephin and clindamycin Continuing florastor Continue wound care. We will follow up with blood culture Continuing pain medication Discharge planning. This medical document was created using an electronic medical record system with [employer] direct computerized dictation system. Although this document has been carefully reviewed, there may still be some phonetic and typographical errors. These areas are purely typographical due to imperfections of the software programs, and do not reflect any compromise in the patient's medical care. Plan discussed with: Patient Date of Service: Sep 14, 2024 Billing Provider: JEAN-CLAUDE ORNELAS MD Common Visit Codes: [id number] INP/OBS CARE(HIGH) JEAN-CLAUDE ORNELAS MD Sep 14, 2024 12:05
[2024-09-15] VITALS (7 sets, daily range): BP systolic 93–117; BP diastolic 62–70; PULSE 63–84; RESP 17–19; TEMP 97.5–97.9; O2SAT 95–99
[2024-09-15 06:10] LABS: Basophils # (auto) 0.1 10 ^3/uL (0-0.2); Basophils % (auto) 1.6 % (0.0-2.0); Eosinophils # (auto) 0.2 10 ^3/uL (0-0.8); Eosinophils % (auto) 2.9 % (0.0-7.0); Hematocrit 38.9 % (41.0-53.0); Hemoglobin 13.4 g/dL (13.5-17.5); Lymphocytes # (auto) 1.8 10 ^3/uL (0.4-5.4); Lymphocytes % (auto) 24.5 % (10.0-50.0); Mean Corpuscular Hemoglobin 30.8 pg (28.0-32.0); Mean Corpuscular Hgb Conc. 34.5 g/dL (32.0-36.0); Mean Corpuscular Volume 89.2 fL (80.0-100.0); Monocytes # (auto) 0.7 10 ^3/uL (0-1.3); Monocytes % (auto) 8.8 % (0.0-12.0); Neutrophils # (auto) 4.7 10 ^3/uL (1.6-8.6); Neutrophils % (auto) 62.2 % (37.0-80.0); Nucleated Red Blood Cells % 0.2 %; Platelet Count (auto) 445 10^3/uL (140-450); Red Blood Cells 4.36 10^6/uL (4.5-5.90); Red Cell Distribution Width 13.4 % (11.8-14.3); White Blood Cell 7.5 10^3/uL (4.4-10.8)
[2024-09-15 06:29] LABS: Calcium 9.4 mg/dL (8.7-10.4); Chloride 106 mmol/L (98-107); Potassium 3.8 mmol/L (3.5-5.1); Sodium 139 mmol/L (136-145)
[2024-09-15 06:30] LABS: Anion Gap 6 (5-15); Carbon Dioxide 27 mmol/L (20-31)
[2024-09-15 06:36] LABS: BUN/Creatinine Ratio 25.4 (10.0-20.0); Blood Urea Nitrogen 16 mg/dL (9-23)
[2024-09-15 06:40] LABS: Glucose 115 mg/dL (74-106)
[2024-09-15] MEDS ORDERED: LEVO500T91 PO (17:45)
[2024-09-15] MEDS ORDERED: CLIN1CAP70 PO (17:45)
--- NOTE | 2024-09-15 20:09 | DVHPN2 ---
Reviewed: Care Plan, H&P, Labs, Medications Changes from previous H/P or p: No Changes General: Per HPI Eyes: No Pain, No Vision change, No Conjunctivae inflammation, No Eyelid inflammation, No Other, No Redness ENT: No Ear pain, No Ear discharge, No Nose pain, No Nose discharge, No Nose congestion, No Mouth pain, No Mouth swelling, No Throat pain, No Throat swelling, No Other Cardiovascular: No Chest Pain, No Palpitations, No Orthopnea, No Paroxysmal Noc. Dyspnea, No Edema, No Lt Headedness, No Other Respiratory: No Cough, No Dry, No Shortness of breath, No SOB with excertion, No Wheezing, No Hemoptysis, No Pleuritic Pain, No Sputum, No Other Gastrointestinal: No Nausea, No Vomiting, No Abdominal Pain, No Diarrhea, No Constipation, No Melena, No Hematochezia, No Other Genitourinary: No Dysuria, No Frequency, No Incontinence, No Hematuria, No Retention, No Other Musculoskeletal: No other, No neck pain, No shoulder pain, No arm pain, No back pain; hand pain (right hand swelling, redness, and pain); No leg pain, No foot pain Skin: No Rash, No Lesions, No Jaundice, No Bruising, No Other Objective Vitals Vital Signs Date Time Temp Pulse Resp B/P (MAP) Pulse Ox O2 Delivery O2 Flow Rate FiO2 09/15/24 17:00 97.9 63 18 117/65 (82) 95 97.9 09/15/24 08:00 Room Air* 0 21 Intake/Output Intake and Output 09/15/24 07:00 Intake Total 1890 ml Output Total 300 ml Balance 1590 ml Intake Oral 1740 ml IV Total 150 ml Output Urine Total 300 ml # Voids 6 # Bowel Movements 2 General Appearance: Alert, Oriented X3, Cooperative, mild distress HEENT: Atraumatic, PERRLA Lungs: Clear to auscultation, Normal air movement Cardiovascular: Normal S1, Normal S2 Abdomen: Normal bowel sounds, Soft, No tenderness, No hepatospenomegaly Genitourinary: No Apparent Abnormalities Extremities: Normal pulses, Other (Right hand swelling) Neuro: Normal gait, Normal speech Skin: Dry, Intact Psych/Mental Status: Mental status NL, Mood NL Medications Current Medications Medications Dose Ordered Sig/Raul Route Start Time Stop Time Status Last Admin Dose Admin Acetaminophen/ Hydrocodone Bitart 1 tab Q4HP PRN PO 09/08/24 13:45 09/11/24 14:29 1 TAB Ondansetron HCl 4 mg Q4HP PRN IV 09/08/24 13:45 Docusate Sodium 100 mg BIDPRN PRN PO 09/08/24 13:45 Acetaminophen 650 mg Q6HP PRN PO 09/08/24 13:45 09/09/24 23:14 650 MG Clindamycin Phosphate 50 ml @ 50 mls/hr Q8HR IV 09/08/24 14:00 09/15/24 14:00 50 MLS/HR Ceftriaxone Sodium 50 ml @ 100 mls/hr DAILY@09 IV 09/09/24 09:00 09/15/24 09:38 100 MLS/HR Saccharomyces Boulardii 250 mg DAILY PO 09/10/24 10:00 09/15/24 09:38 250 MG Laboratory Results Laboratory Tests 09/15/24 05:55 Chemistry Test 09/15/24 05:55 Calcium Level 9.4 mg/dL (8.7-10.4) Microbiology Microbiology Date/Time Source Procedure Growth Status 09/09/24 11:00 Hand Gram Stain - Final Complete 09/09/24 11:00 Wound Culture - Final Klebsiella oxytoca Streptococcus Group A Complete 09/08/24 14:05 Blood Blood Culture - Final NO GROWTH AFTER 5 DAYS OF INCUBATION. Complete Labs and/or images reviewed: Labs reviewed by me, Image(s) reviewed by me Assessment/Plan Assessment/Plan sepsis -right hand cellulitis with wound culture show: Klebsiela Oxytoca and Strep Group A Plan: Continuing current management. Continuing with IV antibiotic Rocephin and clindamycin Continuing florastor Continue wound care. We will follow up with blood culture Continuing pain medication Discharge planning. 09/15/2024: possible d/c within 24 hours wound is still inflamed and has pus-like discharge. Plan discussed with: Patient Date of Service: Sep 15, 2024 Billing Provider: CATHY BEGUM DO Common Visit Codes: [id number] INP/OBS CARE(HIGH) CATHY BEGUM DO Sep 15, 2024 20:09
[2024-09-16 01:00] VITALS: BP 117/75; PULSE 62; RESP 18; TEMP 97.6; O2SAT 100
[2024-09-16 05:00] VITALS: BP 115/73; PULSE 61; RESP 17; TEMP 97.6; O2SAT 97
[2024-09-16 08:00] VITALS: RESP 19; O2SAT 96
[2024-09-16 09:00] VITALS: BP 131/71; PULSE 60; RESP 18; TEMP 97.9; O2SAT 97
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
[2024-09-16 12:29] VITALS: TEMP 36.6
[2024-09-16 13:00] VITALS: BP 116/73; PULSE 74; RESP 18; TEMP 98.6; O2SAT 96
== END 2024-09-16 13:14 | disposition home or self-care (01) | DRG 720 ==
LOC: ER 09:25 → OVERFLOW 13:43 → EAST 09-09 16:44
PROVIDERS: ADMIT Internal Medicine; ATTEND Internal Medicine
DX: A41.9 Sepsis, unspecified organism (principal); L03.113 Cellulitis of right upper limb; S61.401A Unspecified open wound of right hand, initial encounter; Z79.899 Other long term (current) drug therapy; X58.XXXA Exposure to other specified factors, initial encounter; Y93.89 Activity, other specified; Y92.89 Other specified places as the place of occurrence of the external cause; Y99.8 Other external cause status; B95.0 Streptococcus, group A, as the cause of diseases classified elsewhere
CPT/HCPCS: 36415; 73130; 80048; 80053; 83605; 85025; 87040; 87077; 87186; 87205; 96361; 96365; 96367; 96375; G0378; J2405; J3490